=== PATIENT | male | born 1985 | race Caucasian/White ===

== ENCOUNTER 2019-05-25 12:22 | Outpatient (CLI) | payer OTHER | END 2019-05-25 23:59 | disposition home or self-care (01) | LOC: LAB 12:22 | PROVIDERS: ATTEND Physician Assistant | DX: Z12.11 Encounter for screening for malignant neoplasm of colon (principal); Z13.220 Encounter for screening for lipoid disorders; E55.9 Vitamin D deficiency, unspecified; Z12.5 Encounter for screening for malignant neoplasm of prostate; R94.31 Abnormal electrocardiogram [ECG] [EKG]; R42 Dizziness and giddiness; R94.5 Abnormal results of liver function studies; R22.1 Localized swelling, mass and lump, neck | CPT/HCPCS: 36415; 82728; 83540; 83550; 84466; 85025 ==